=== PATIENT | female | born 1970 | race American Indian/Alaskan Native ===

== ENCOUNTER 2017-11-14 13:32 | Outpatient (CLI) | payer OTHER ==
--- NOTE | 2017-11-15 16:15 | Mammography Report ---
BILATERAL DIGITAL SCREENING MAMMOGRAM with CAD: 11/14/17 13:32:00 CLINICAL: Baseline screening. FINDINGS: The breasts are mostly fatty with bilateral residual retroareolar fibroglandular densities.No mass, architectural distortion or suspicious calcifications. IMPRESSION: No mammographic evidence of malignancy. BI-RADS CATEGORY: 1 -- Negative RECOMMENDATION: Routine mammographic screening in one year. COMMENT: Patient follow-up letters are generated by our [employer] application.
== END 2017-11-14 13:33 | disposition home or self-care (01) ==
LOC: MAMMO 13:32
PROVIDERS: ATTEND Family Medicine
DX: Z12.31 Encounter for screening mammogram for malignant neoplasm of breast (principal)
CPT/HCPCS: 77067; G0202

== ENCOUNTER 2021-04-05 18:58 | Emergency (ER) | payer OTHER ==
[2021-04-05 19:49] VITALS: BP 156/93
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
[2021-04-05] MEDS ORDERED: HYDROcodone/ACETAMINOPHEN 5-325 MG TAB PO ONE (20:55)
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
--- NOTE | 2021-04-07 11:54 | Electrocardiograph Report ---
[facility] Test Date: 2021-04-05 Test Time: 21:44:35 Pat Name: KAMALJIT WELLER Department: Room: Gender: F Mill Turner: : 1970 Requested By: NETTIE CLEMONS Order Number: [id number] Reading MD: Javier Crowe Measurements Intervals Dietrich Rate: 75 P: 62 MI: 159 QRS: 23 QRSD: 76 T: 16 QT: 381 QTc: 425 Interpretive Statements Sinus rhythm Probable left atrial enlargement No previous ECG available for comparison Electronically Signed On 04-07-2021 11:54:11 EDT by Javier Crowe
== END 2021-04-05 21:56 | disposition home or self-care (01) ==
LOC: ED 18:58
DX: S40.022A Contusion of left upper arm, initial encounter (principal); R07.89 Other chest pain; I10 Essential (primary) hypertension; J45.909 Unspecified asthma, uncomplicated; Z90.710 Acquired absence of both cervix and uterus; Z98.890 Other specified postprocedural states; Z79.899 Other long term (current) drug therapy; Z88.8 Allergy status to other drugs, medicaments and biological substances; V49.49XA Driver injured in collision with other motor vehicles in traffic accident, initial encounter; Y92.410 Unspecified street and highway as the place of occurrence of the external cause; Y93.89 Activity, other specified; Y99.8 Other external cause status
CPT/HCPCS: 71046; 93005